=== PATIENT | female | born 1960 | race African-American/Black ===

== ENCOUNTER 2016-07-13 06:31 | Emergency (ER) | payer BC ==
[~2016-07-13] VITALS: Ht 167.6 cm; Wt 131.5 kg
[2016-07-13] MEDS ORDERED: KLOR-CON 1010 MEQ PO (06:44)
[2016-07-13] MEDS ORDERED: FLONASE 0.05%50 MCG NASAL (06:44)
[2016-07-13] MEDS ORDERED: TRIAMTERENE-HC1 EAC3 PO (06:44)
[2016-07-13] MEDS ORDERED: NEXIUM40 MG PO (06:45)
[2016-07-13] MEDS ORDERED: TOPROL XL25 MG PO (06:45)
[2016-07-13] MEDS ORDERED: AMLODIPINE BESY10 MG PO (06:45)
[2016-07-13] MEDS ORDERED: IBUPROFEN 600600 M1 PO (07:02)
[2016-07-13 07:12] VITALS: BP 142/82
== END 2016-07-13 07:15 | disposition home or self-care (01) ==
LOC: ER 06:31
DX: M54.31 Sciatica, right side (principal)